=== PATIENT | male | born 1955 | race Caucasian/White ===

== ENCOUNTER → 2018-10-01 | Outpatient (CLI) | payer OTHER, MEDICARE ==
--- NOTE | 2018-10-01 14:03 | PCVCIMAG ---
EXAM: BILATERAL LOWER EXTREMITY ARTERIAL DUPLEX INDICATION: Peripheral Arterial Disease. Leg pain. Left hip/leg claudication. FINDINGS: Right Leg: Satisfactory arterial waveforms throughout the common/profunda/superficial femoral, popliteal, anterior tibial, peroneal, and posterior tibial arteries. No flow limiting stenosis seen. Left Leg: Mild blunting of the arterial waveforms in the left common femoral artery raising concern for significant left iliac stenosis. Profunda femoral artery is patent. Superficial femoral artery and popliteal artery are patent. The anterior tibial, peroneal, and posterior tibial arteries are patent. IMPRESSION: No flow limiting stenosis in the right lower extremity. Mild blunting of the arterial waveforms in the left common femoral artery raising concern for nonvisualized significant left iliac stenosis. No additional stenoses in the left lower extremity. LOC:[id number]
--- NOTE | 2018-10-01 14:55 | PCVCIMAG ---
EXAM: NONINVASIVE ARTERIAL EXAMINATION OF BOTH LOWER EXTREMITIES INCLUDING PRE AND POST EXERCISE PRESSURE MEASUREMENTS AND DOPPLER WAVEFORMS INDICATION: Peripheral Arterial Disease. Leg pain. FINDINGS: Right Brachial: 176 mm Hg. Right Dorsalis Pedis: 192 mm Hg. Right Posterior Tibial: 185 mm Hg. Right SPARKLE = 1.09. Left Brachial: 172 mm Hg. Left Dorsalis Pedis: 148 mm Hg. Left Posterior Tibial: 141 mm Hg. Left SPARKLE = 0.84. Post Exercise: Right Brachial 195 mm Hg. Right Dorsalis Pedis: 156 mm Hg. Left Dorsalis Pedis: 97 mm Hg. Right SPARKLE = 0.80. Left SPARKLE = 0.50. IMPRESSION: No resting ischemia in the right lower extremity. Mild exercise induced ischemia in the right lower extremity. Mild resting ischemia in the left lower extremity. Moderate exercise induced ischemia in the left lower extremity. LOC:[id number]
== END | disposition home or self-care (01) ==
LOC: PCVCIMAG 13:27
PROVIDERS: ATTEND Nuclear Medicine Nuclear Cardiology
DX: I73.9 Peripheral vascular disease, unspecified (principal)
CPT/HCPCS: 93924; 93925

== ENCOUNTER → 2018-10-06 | Outpatient (CLI) | payer OTHER, MEDICARE | END | disposition home or self-care (01) | LOC: PCVCCLINIC 10:24 | PROVIDERS: ATTEND Nuclear Medicine Nuclear Cardiology | DX: E78.00 Pure hypercholesterolemia, unspecified (principal); F17.200 Nicotine dependence, unspecified, uncomplicated | CPT/HCPCS: 36415 ==

== ENCOUNTER → 2018-10-08 | Outpatient (CLI) | payer OTHER, MEDICARE ==
[~2018-10-08] MED LIST: ASPIRIN 325 MG TABLET ONE; CLOPIDOGREL BISULFATE 75 MG TABLET ONE; DIAZEPAM 10 MG TABLET. ONE; EPTIFIBATIDE BOLUS 2,000 MCG/ML 10ML VIAL. IV ONE; FAMOTIDINE 20 MG/2 ML VIAL ONE; HEPARIN for SUB-Q USE 5,000 UNIT/ML VIAL. SQ ONE; IODIXANOL 270 MG/ML 100 ML VIAL. ONE; IV NORMAL SALINE 1000ML BAG 1,000 ML ONE; LIDOCAINE 1%/EPI 1:100,000 20 ML VIAL. ONE; MIDAZOLAM HCL/PF 2 MG/2 ML VIAL. ONE; diphenhydrAMINE 50 MG/ML VIAL ONE; fentaNYL PF VIAL 100 MCG/2 ML VIAL ONE; hydrALAZINE 20 MG/ML VIAL. ONE; methylPREDNISolone SOD SUCC PF 125 MG/2 ML VIAL. ONE
--- NOTE | 2018-10-08 14:57 | PCVCINTER ---
EXAM: 1. AORTOGRAM AND BILATERAL LOWER EXTREMITY RUNOFF ANGIOGRAM 2. BILATERAL RENAL ANGIOGRAPHY 3. RIGHT COMMON ILIAC ARTERY STENT PLACEMENT. 4. LEFT COMMON ILIAC ARTERY STENT PLACEMENT. INDICATION: Peripheral arterial disease. Lower extremity claudication left greater than right. Hypertension. Renal atherosclerosis. No prior catheter based angiographic study is available. A full diagnostic angiogram study is performed today and the decision to intervene is based on this diagnostic study. PROCEDURE: Procedure and risks of angiography intervention is appropriate including limb loss stroke and were discussed with the patient's family and consent obtained. The patient's right groin was prepped in the normal sterile fashion. IV conscious sedation was used throughout procedure with appropriate monitoring from 90. Ultrasound was used to interrogate the right groin and showed the right common femoral artery to be patent. A permanent spot film was obtained. Under ultrasound guidance access into the right common femoral artery was obtained and a 5 [place]i sheath was placed. Through this a 5 [place]i flush catheter was placed into the abdominal aorta at the level of the renal arteries and AP aortogram was performed. Catheter was positioned at the aortic bifurcation and both oblique views of the pelvis were obtained. Catheter was positioned into the right external iliac artery and right leg runoff angiography was performed. Catheter was exchanged for a visceral catheter was placed into the right renal arteries and right renal angiograms obtained. Catheter was placed into the the left renal arteries and left renal angiograms were obtained. Catheter was advanced to the level of the left external iliac artery and left leg runoff angiography was obtained. Patient was given 4000 units of heparin. Stent placement across the areas of high-grade stenosis in the left common iliac artery was carried out with a 12 x 40 Smart control stent with subsequent dilatation to 9.0 mm. Stent placement across the areas of high-grade stenosis in the right common iliac artery was carried out with a 12 x 60 Smart control stent with subsequent dilatation to 9.0 mm. Follow-up angiogram was performed. Catheters and wires removed. Sheath was removed and hemostasis obtained using the FISH device. No immediate complications. FINDINGS: Aortogram: There is one right and one left renal artery. Minimal plaque infrarenal abdominal aorta without significant stenosis. Pelvis: Irregular plaque right common iliac artery results in moderate stenosis. 90% eccentric stenosis mid to lower left common iliac artery. Both internal iliac arteries are patent. The right and left external iliac arteries are patent. The right and left common femoral and profunda femoral arteries are patent. Right renal artery: Minimal plaque proximal vessel does not cause significant stenosis. Left renal artery: Minimal plaque proximal vessel does not cause significant stenosis. Right leg: Superficial femoral artery and popliteal artery are patent. Three-vessel runoff into the foot. Left leg: Superficial femoral artery and popliteal artery are patent. Three-vessel runoff into the foot. Right common iliac artery: Following procedure as above vessel shows good patency. Left common iliac artery: Following procedure as above vessel shows good patency. IMPRESSION: 90% eccentric stenosis left common iliac artery and moderate right common iliac artery stenoses were treated as above with good patency restored. LOC:[id number]
== END | disposition home or self-care (01) ==
LOC: PCVCINTER 13:00
PROVIDERS: ATTEND Nuclear Medicine Nuclear Cardiology
DX: I70.213 Atherosclerosis of native arteries of extremities with intermittent claudication, bilateral legs (principal); I70.1 Atherosclerosis of renal artery; I70.0 Atherosclerosis of aorta; K21.9 Gastro-esophageal reflux disease without esophagitis; F32.9 Major depressive disorder, single episode, unspecified; G43.909 Migraine, unspecified, not intractable, without status migrainosus; I15.0 Renovascular hypertension; Z98.890 Other specified postprocedural states; F17.210 Nicotine dependence, cigarettes, uncomplicated; Z91.013 Allergy to seafood; E78.00 Pure hypercholesterolemia, unspecified; Z79.899 Other long term (current) drug therapy; Z79.82 Long term (current) use of aspirin
CPT/HCPCS: 36252; 37221; 75716; 76937; 99152; 99153; C1713; C1725; C1751; C1769; C1876; C1894; J0690; J1200; J1644; J2250; J2930; J3010; J3490; J7030; Q9967; J0360; J1327

== ENCOUNTER → 2018-11-19 | Outpatient (CLI) | payer MEDICARE, OTHER ==
--- NOTE | 2018-11-19 11:46 | PCVCIMAG ---
APPROVED REPORT Study performed: 11/19/2018 10:11:54 EXAM: Comprehensive 2D, Doppler, and color-flow Echocardiogram Patient Location: Echo lab Status: routine BSA: 2.15 HR: 59 bpmBP: 130/802 mmHg Rhythm: NSR Other Information Study Quality: Good Risk Factors: Cardiac Risk Factors: HTN, Hyperlipidemia, Smoking Indications Hypertension/HDD PAD 2D Dimensions IVSd: 11.22 (7-11mm)LVOT Diam: 20.29 (18-24mm) LVDd: 38.38 mm PWd: 10.63 (7-11mm)Ascending Ao: 37.99 (22-36mm) LVDs: 28.08 (25-40mm) Left Atrium: 34.61 (27-40mm) Aortic Root: 27.37 mm LV Single Plane 4CH: 62.74 % LV Single Plane 2CH: 67.51 % Biplane EF: 65.4 % Volumes Left Atrial Volume (Systole) Single Plane 4CH: 29.72 mLSingle Plane 2CH: 37.72 mL LA ESV Index: 17.00 mL/m2 Aortic Valve AoV Peak Navi.: 1.65 m/s AO Peak Gr.: 10.84 mmHg Mitral Valve E/A Ratio: 0.8 MV Decel. Time: 294.37 ms MV E Max Navi.: 0.83 m/s MV A Navi.: 1.10 m/s IVRT: 138.41 ms TDI E/Lateral E': 11.86E/Medial E': 11.86 Medial E' Navi.: 0.07 m/s Lateral E' Navi.: 0.07 m/s Pulmonary Valve PV Peak Gr.: 3.38 mmHg Pulmonary Vein P Vein S: 0.61 m/sP Vein A: 0.30 m/s P Vein D: 0.55 m/sP Vein A Dur.: 103.8 msec P Vein S/D Ratio: 1.11 Left Ventricle The left ventricle is normal size. There is normal LV segmental wall motion. Mild concentric left ventricular hypertrophy. Left ventricular systolic function is normal. The left ventricular ejection fraction is within the normal range. LVEF is 55-60%. The left ventricular diastolic function is normal. Right Ventricle The right ventricle is normal size. The right ventricular systolic function is normal. Atria The left atrium size is normal. The right atrium size is normal. Aortic Valve The aortic valve is normal in structure. No aortic regurgitation is present. There is no aortic valvular stenosis. Mitral Valve The mitral valve is normal in structure. Trace mitral regurgitation. No evidence of mitral valve stenosis. Tricuspid Valve The tricuspid valve is normal in structure. Trace tricuspid regurgitation. Pulmonic Valve The pulmonary valve is normal in structure. There is no pulmonic valvular regurgitation. Great Vessels The aortic root is normal in size. IVC is normal in size and collapses >50% with inspiration. Pericardium There is no pericardial effusion. <Conclusion> The left ventricle is normal size. Mild concentric left ventricular hypertrophy. LVEF is 55-60%. The right ventricle is normal size. The left atrium size is normal. The aortic valve is normal in structure. Trace mitral regurgitation. Trace tricuspid regurgitation. The aortic root is normal in size. There is no pericardial effusion.
== END | disposition home or self-care (01) ==
LOC: PCVCIMAG 13:27
PROVIDERS: ATTEND Internal Medicine Cardiovascular Disease
DX: I10 Essential (primary) hypertension (principal); E78.5 Hyperlipidemia, unspecified; I73.9 Peripheral vascular disease, unspecified; G43.909 Migraine, unspecified, not intractable, without status migrainosus; F03.90 Unspecified dementia, unspecified severity, without behavioral disturbance, psychotic disturbance, mood disturbance, and anxiety; R73.03 Prediabetes; F17.210 Nicotine dependence, cigarettes, uncomplicated; E78.00 Pure hypercholesterolemia, unspecified; Z79.82 Long term (current) use of aspirin
CPT/HCPCS: 36415; 80061; 93005; 93306; G0463

== ENCOUNTER → 2019-02-04 | Outpatient (CLI) | payer MEDICARE, OTHER ==
--- NOTE | 2019-02-04 10:33 | PCVCIMAG ---
EXAM: BILATERAL CAROTID DUPLEX INDICATION: Carotid Occlusive Disease. FINDINGS: Doppler Measurements (centimeters per second): RIGHT: Peak CCA-73, Peak ECA-74, Diastolic ICA-24, Peak ICA-71, ICA/CCA Ratio-1.0. LEFT: Peak CCA-86, Peak ECA-78, Diastolic ICA-30, Peak ICA-95, ICA/CCA Ratio-1.1. RIGHT CAROTID: The carotid bulb has minimal plaque. The proximal internal carotid artery shows no significant stenosis. The common carotid artery shows no significant stenosis. The external carotid artery shows no significant stenosis. LEFT CAROTID: The carotid bulb has mild plaque. The proximal internal carotid artery shows <40% stenosis. The common carotid artery shows no significant stenosis. The external carotid artery shows no significant stenosis. Antegrade flow in both vertebral arteries. IMPRESSION: No significant stenosis of the right internal carotid artery with minimal plaque. <40% stenosis of the left internal carotid artery with mild plaque. LOC:[id number]
--- NOTE | 2019-02-04 15:13 | PCVCIMAG ---
EXAM: AORTOILIAC DUPLEX INDICATION: Peripheral arterial disease FINDINGS: AORTA: Suprarenal aorta measures maximum diameter of 3.0 cm. There is not a fusiform infrarenal aortic aneurysm. The infrarenal aorta measures maximum diameter of 2.1 cm. No aortic stenosis. RIGHT COMMON ILIAC ARTERY: Maximum diameter is 1.5 cm. No significant stenosis. RIGHT EXTERNAL ILIAC ARTERY: No significant stenosis. LEFT COMMON ILIAC ARTERY: Maximum diameter is 1.1 cm. No significant stenosis. LEFT EXTERNAL ILIAC ARTERY: No significant stenosis. IMPRESSION: No abdominal aortic aneurysm. No aortoiliac stenosis seen. Previous bilateral iliac stent maintaining satisfactory patency. LOC:[id number]
--- NOTE | 2019-02-04 15:15 | PCVCIMAG ---
EXAM: NONINVASIVE ARTERIAL EXAMINATION OF BOTH LOWER EXTREMITIES INCLUDING PRE AND POST EXERCISE PRESSURE MEASUREMENTS AND DOPPLER WAVEFORMS INDICATION: Peripheral Arterial Disease. Leg pain. FINDINGS: Right Brachial: 154 mm Hg. Right Dorsalis Pedis: 201 mm Hg. Right Posterior Tibial: 202 mm Hg. Right SPARKLE = 1.25. Left Brachial: 162 mm Hg. Left Dorsalis Pedis: 212 mm Hg. Left Posterior Tibial: 202 mm Hg. Left SPARKLE = 1.31. Post Exercise: Left Brachial 171 mm Hg. Right Posterior Tibial: 166 mm Hg. Left Dorsalis Pedis: 200 mm Hg. Right SPARKLE = 0.97. Left SPARKLE = 1.17. IMPRESSION: No resting ischemia in the right lower extremity. No exercise induced ischemia in the right lower extremity. No resting ischemia in the left lower extremity. No exercise induced ischemia in the left lower extremity. LOC:[id number]
== END | disposition home or self-care (01) ==
LOC: PCVCIMAG 10:17
PROVIDERS: ATTEND Nuclear Medicine Nuclear Cardiology
DX: I65.23 Occlusion and stenosis of bilateral carotid arteries (principal); I73.9 Peripheral vascular disease, unspecified; F17.210 Nicotine dependence, cigarettes, uncomplicated; Z79.82 Long term (current) use of aspirin
CPT/HCPCS: 93005; 93880; 93924; 93978; G0463

== ENCOUNTER → 2019-09-03 | Outpatient (CLI) | payer MEDICARE, OTHER ==
--- NOTE | 2019-09-04 00:16 | PCVCIMAG ---
EXAM: AORTOILIAC DUPLEX INDICATION: Peripheral arterial disease FINDINGS: AORTA: Suprarenal aorta measures maximum diameter of 2.9 cm. There is not a fusiform infrarenal aortic aneurysm. The infrarenal aorta measures maximum diameter of 1.8 cm. No aortic stenosis. RIGHT COMMON ILIAC ARTERY: Maximum diameter is 1.2 cm. No significant stenosis. RIGHT EXTERNAL ILIAC ARTERY: No significant stenosis. LEFT COMMON ILIAC ARTERY: Maximum diameter is 1.4 cm. No significant stenosis. LEFT EXTERNAL ILIAC ARTERY: No significant stenosis. IMPRESSION: No abdominal aortic aneurysm. No aortoiliac stenosis seen. LOC:[id number]
== END | disposition home or self-care (01) ==
LOC: PCVCIMAG 12:03
PROVIDERS: ATTEND Internal Medicine Cardiovascular Disease
DX: I73.9 Peripheral vascular disease, unspecified (principal); I77.1 Stricture of artery; R94.31 Abnormal electrocardiogram [ECG] [EKG]; E78.00 Pure hypercholesterolemia, unspecified; F17.200 Nicotine dependence, unspecified, uncomplicated; I25.10 Atherosclerotic heart disease of native coronary artery without angina pectoris; I10 Essential (primary) hypertension; I70.8 Atherosclerosis of other arteries; K21.9 Gastro-esophageal reflux disease without esophagitis; I15.0 Renovascular hypertension; Z79.82 Long term (current) use of aspirin; Z79.899 Other long term (current) drug therapy; Z91.013 Allergy to seafood; Z88.8 Allergy status to other drugs, medicaments and biological substances
CPT/HCPCS: 36415; 80061; 93005; 93978; G0463

== ENCOUNTER → 2019-10-14 | Outpatient (CLI) | payer MEDICARE, OTHER ==
--- NOTE | 2019-10-14 12:59 | PCVCIMAG ---
APPROVED REPORT Study performed: 10/14/2019 10:55:27 Exam: Stress Echocardiogram Indication: PAD, htn, fatigue, hlp Patient Location: Echo lab Stress Nurse: Karla Estrada RN Status: routine Ht: 6 ft 0 in HR: 81 bpm BP: 142/80 mmHg Rhythm: NSR Procedure The patient underwent an Exercise Stress Test using the Moustapha Protocol. Blood pressure, heart rate, and EKG were monitored. An Echocardiogram was performed by crime lab technician in four stages in quad fashion. At peak stress, four selected images were obtained and placed side by side with resting images for comparison. Stress Test Details Stress Test: Exercise stress testing was performed using a Moustapha protocol. HR Resting HR: 81 bpmMax Heart Rate (APMHR): 154 bpm Max HR Achieved: 125 bpmTarget HR (85% APMHR): 130 bpm % of APMHR: 81 Recovery HR: 90 bpm HR response to stress: Normal HR response to stress BP Resting BP: 142/80 mmHg Max BP: 168/66 mmHg Recovery BP: 142/68 mmHg BP response to stress: Normal blood pressure response to stress. ECG Resting ECG: Sinus Rhythm Stress ECG: Sinus Rhythm ST Change: Normal Arrhythmia: None Recovery ECG: Sinus Rhythm Recovery ST Change: Normal Recovery Arrhythmia: None Clinical Reason for Termination: Maximal effort, dyspnea, leg fatigue Stress Symptoms: Dyspnea, Leg Fatigue Exercise duration: 4 min 21 sec Highest Stage Achieved: Stage 2: 2.5 mph at 12% grade. Exercise capacity: 7 METs Overall Exercise Capacity for Age: Normal Scale: Sedentary Angina Score: None Pre-Stress Echo The resting Echocardiogram showed normal left ventricular contractility with an estimated Ejection Fraction of about >55%. The resting echocardiogram demonstrated normal wall motion in all wall segments. Post-Stress Echo The stress Echocardiogram showed left ventricular contractility with an estimated Ejection Fraction of about 65%. Compared to rest, there were no stress-induced wall motion abnormalities. Clinical No clinical or ECG evidence for ischemia. Conclusion Clinical Response: Non-ischemic Exercise Capacity: Below Average Stress ECG Response: Non-ischemic Stress Echo Images: Non-ischemic The left ventricle is normal in size and wall thickness in both the rest and stress images. Slightly submaximal heart rate response (81% of target) due to difficulty walking/ leg fatigue. Trace mitral regurgitation. Normal aortic valve, no regurgitation or stenosis. Trace tricuspid regurgitation with PAP of 25 mmHg. Other Information Study Quality: Adequate <Conclusion> The left ventricle is normal in size and wall thickness in both the rest and stress images. Slightly submaximal heart rate response (81% of target) due to difficulty walking/ leg fatigue. Trace mitral regurgitation. Normal aortic valve, no regurgitation or stenosis. Trace tricuspid regurgitation with PAP of 25 mmHg.
== END | disposition home or self-care (01) ==
LOC: PCVCIMAG 11:04
PROVIDERS: ATTEND Internal Medicine Cardiovascular Disease
DX: I25.10 Atherosclerotic heart disease of native coronary artery without angina pectoris (principal); I10 Essential (primary) hypertension; E78.00 Pure hypercholesterolemia, unspecified; I73.9 Peripheral vascular disease, unspecified; E78.5 Hyperlipidemia, unspecified; F17.200 Nicotine dependence, unspecified, uncomplicated
CPT/HCPCS: 93325; 93351